=== PATIENT | male | born 1975 | race Hispanic/Latino ===

== ENCOUNTER 2017-06-04 08:45 | Emergency (ER) | payer SELFPAY ==
[~2017-06-04] VITALS: Ht 165.1 cm; Wt 72.6 kg
[2017-06-04 09:04] VITALS: BP 148/85
[2017-06-04] MEDS ORDERED: methylPREDNISolone 125 MG (Solu-MEDROL) VIAL IM ONE ×2 (10:00)
--- NOTE | 2017-06-04 10:06 | ED Integumentary General ---
General Chief Complaint: Skin/Wound Problems Stated Complaint: POSS POSION JOSEPH ON HANDS AND L LEG Nursing Triage Note: PT REPORTS RASH TO BILAT ARMS. THINKS IT MAY BE POISON JOSEPH. Source: patient Exam Limitations: no limitations History of Present Illness Time seen by provider: 09:20 Initial Comments The patient is a 42-year-old male who presents with complaints of itchy rash and swelling over body but particularly the hands and forearms. He has had a problem in the past with poison josehp and believes this is the same. About 2 weeks ago he had an eruption over his lower legs which is in the healing phase now. He believes that this occurs while working in the yard. He does not know how to identify poison joseph and has not used occlusive clothing while doing these chores. Timing/Duration: yesterday Location: hands, extremities Possible Cause: exposure to allergen Associated Symptoms: blisters, change in skin texture, edema Allergies and Home Medications Allergies Coded Allergies: No Known Drug Allergies (Unverified , 06/04/17) Constitutional: see HPI EENTM: no symptoms reported Respiratory: no symptoms reported Cardiovascular: no symptoms reported Gastrointestinal: no symptoms reported Genitourinary: no symptoms reported Musculoskeletal: no symptoms reported Skin: see HPI Psychiatric/Neurological: No Symptoms Reported Endocrine: No Symptoms Reported Hematologic/Lymphatic: No Symptoms Reported Past Qtenvjd-Ecteip-Xqmcqv Hx Patient Social History Alcohol Use: Denies Use Recreational Drug Use: No Smoking Status: Never a Smoker 2nd Hand Smoke Exposure: No Recent Foreign Travel: No Contact w/Someone Who Travel: No Recent Infectious Disease Expo: No Recent Hopitalizations: No Physical Abuse: No Sexual Abuse: No Seasonal Allergies Seasonal Allergies: No Surgeries History of Surgeries: No Psychosocial Suicide Risk Score: 0 Physical Exam Vital Signs Vital Sign - Last 12Hours 06/04/17 09:04 Temp 99.0 Pulse 95 Resp 16 B/P (MAP) 148/85 Pulse Ox 99 O2 Delivery Room Air Capillary Refill : Less Than 3 Seconds General Appearance: mild distress HEENT: normal ENT inspection Neck: full range of motion Cardiovascular: normal peripheral pulses, regular rate, rhythm, no edema, no gallop, no JVD, no murmur Respiratory: chest non-tender, lungs clear, normal breath sounds, no respiratory distress, no accessory muscle use Gastrointestinal: normal bowel sounds, non tender, no organomegaly Back: normal inspection Extremities: normal range of motion, non-tender, normal inspection, no pedal edema, no calf tenderness, normal capillary refill, pelvis stable 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, no motor/sensory deficits, alert, normal mood/affect, oriented x 3, EOM palsy, depressed affect Skin: normal color, warm/dry Skin Problem Location: generalized, upper extremities Lymphatic: no adenopathy Progress/Results/Core Measures Results/Orders My Orders Orders - DACIA BENTON MD Methylprednisolone Sod Succ (Solu-Medrol (06/04/17 10:00) Methylprednisolone Sod Succ (Solu-Medrol (06/04/17 10:00) Vital Signs/I&O Vital Sign - Last 12Hours 06/04/17 09:04 Temp 99.0 Pulse 95 Resp 16 B/P (MAP) 148/85 Pulse Ox 99 O2 Delivery Room Air Blood Pressure Mean: 106 Departure Impression Impression: Primary Impression: RHUS dermatitis Disposition: 01 HOME, SELF-CARE Condition: Stable/Unchanged Departure-Patient Inst. Decision time for Depature: 10:07 Referrals: NO,LOCAL PHYSICIAN (PCP/Family) Primary Care Physician Add. Discharge Instructions: All discharge instructions reviewed with patient and/or family. Voiced understanding. Take prednisone as directed In the future when working outdoors wear protective clothing which means shoes socks, long pants, long sleeve shirt, gloves. On returning to indoors placed this clothing in the dirty closed for washing purposes. Wash your hands with warm soapy water. Scripts Prednisone (Prednisone) 20 Mg Tab 40 MG PO EACH A.M., #6 TAB Prov: DACIA BENTON MD 06/04/17 DACIA BENTON MD Jun 04, 2017 10:06
[2017-06-04] MEDS ORDERED: PRD20T PO (10:11)
== END 2017-06-04 10:24 | disposition home or self-care (01) ==
LOC: ER 08:50
DX: L30.8 Other specified dermatitis (principal)
CPT/HCPCS: 96372; 99282